=== PATIENT | female | born 1970 | race African-American/Black ===

== ENCOUNTER 2016-06-06 11:00 | Emergency (ER) | payer MEDICAID, OTHER ==
[~2016-06-06] VITALS: Ht 175.3 cm; Wt 95.0 kg
[~2016-06-06 11:00] MED LIST: ATRITAB PO; DILA100C PO; ISENTRESS; LEVE500 PO; LEXA10TA PO; PERC7.5T13 PO
[2016-06-06 11:09] VITALS: BP 115/60; PULSE 71; RESP 18; TEMP 98.2; O2SAT 99
[2016-06-06] MEDS ORDERED: LEVE500T8 PO (11:19)
[2016-06-06] MEDS ORDERED: TOPI1TAB97 PO (11:19)
[2016-06-06] MEDS ORDERED: ATRITAB PO (11:19)
[2016-06-06] MEDS ORDERED: RALT400 PO (11:19)
[2016-06-06] MEDS ORDERED: ESCI10TA PO (11:19)
[2016-06-06] MEDS ORDERED: ZOVI400T PO (11:19)
[2016-06-06] MEDS ORDERED: ADVA250A INH (11:19)
[2016-06-06] MEDS ORDERED: DIVA250T PO (11:19)
[2016-06-06] MEDS ORDERED: BARA1TAB PO (11:19)
--- NOTE | 2016-06-06 11:40 | PD ---
HPI Chief Complaint: Seizure Time Seen by Provider: 11:40 Travel History International Travel<30 days: No Contact w/Intl Traveler<30days: No Traveled to known affect area: No History of Present Illness HPI 45-year-old female with a history of seizure disorder presents to the emergency department by EMS for evaluation of seizure activity. Per EMS report the patient was at a where she had 2 seizures. The patient's is present and provides much of the history as the patient is reporting that she does not remember what happened. Patient's states that they went to her sister's today and after viewing the body they were walking away back to their vehicle when the patient had a seizure falling back and hitting her head on the ground. States that the seizure lasted for a few seconds and then stopped. States that she then had another seizure a few minutes later lasting for only a few seconds. States that she has been taking her seizure medication as prescribed. States that he was concerned that today would be very stressful for her and would aggravate her seizure disorder. States she has not had a seizure in 8 months. The patient is currently having some difficulty speaking, is stammering and is a little confused. The patient's states that this has happened to her once in the past after a seizure as well and resolved on its own. The patient is currently complaining of headache and neck pain. Denies chest pain, shortness of breath, dizziness, nausea, vomiting, abdominal pain, numbness or tingling, focal weakness. She is complaining of global weakness. Denies any anticoagulation. No other complaints. PFSH Past Medical History Anemia: Yes (neutropenia) Arthritis: No Asthma: Yes Autoimmune Disease: Yes (HIV-positive) Blood Disorders: Yes (HIV) Anxiety: No Depression: Yes Heart Rhythm Problems: No Cancer: No Cardiovascular Problems: No High Cholesterol: No Chemotherapy: No Chest Pain: No Congestive Heart Failure: No COPD: No Cerebrovascular Accident: No Diabetes: No Diminished Hearing: No Endocrine: No Gastrointestinal Disorders: Yes (HEMMORHOIDS) GERD: No Glaucoma: No Genitourinary: No Headaches: Yes Hepatitis: No Hiatal Hernia: No Heparin Induced Thrombocytopen: No Hypertension: No Immune Disorder: Yes (HIV +) Implanted Vascular Access Dvce: No Kidney Stones: No Musculoskeletal: Yes Neurologic: Yes Psychiatric: Yes Reproductive: No Respiratory: Yes (hx of PNEUMONIA/asthma) Immunizations Current: No Migraines: No Myocardial Infarction: No Radiation Therapy: No Renal Failure: No Seizures: Yes (takes dilantin) Sickle Cell Disease: No Sleep Apnea: No Thyroid Disease: No Ulcer: No ?: Not Menopausal: Yes : 3 Para: 1 Miscarriage: 2 Past Surgical History Abdominal Surgery: Yes (GALLBLADDER IN 2006) AICD: No Appendectomy: No Arteriovenous Shunt: No Cardiac Surgery: No Cholecystectomy: Yes (2006) Ear Surgery: No Endocrine Surgery: No Eye Surgery: No Genitourinary Surgery: No Gynecologic Surgery: No Hysterectomy: Yes Insulin Pump: No Joint Replacement: No Neurologic Surgery: No Oral Surgery: No Pacemaker: No Thoracic Surgery: No Other Surgery: Yes (cyst removed from right arm) Social History Alcohol Use: No Tobacco Use: No Substance Use: Yes (CRACK MONTHLY) Allergies-Medications (Allergen,Severity, Reaction): Coded Allergies: Amoxicillin (Verified Allergy, Severe, hives, 04/02/10) Penicillin (Verified Allergy, Severe, Hives, 04/02/10) Procaine (Verified Allergy, Severe, HIVES, 04/02/10) Reported Meds & Prescriptions Reported Meds & Active Scripts Active Reported Advair Diskus Inh (Fluticasone-Salmeterol Inh) 250-50 Mcg/Blist Aer 1 Puff INH BID Rinse mouth after use. Escitalopram (Escitalopram Oxalate) 10 Mg Tab 10 Mg PO DAILY Zovirax (Acyclovir) 400 Mg Tab 400 Mg PO BID Topiramate 25 Mg Tab 25 Mg PO BID Baraclude (Entecavir) 1 Mg Tab 1 Mg PO DAILY Take on an empty stomach. Atripla (Hcjlmvjav-Tmhdvxdomibbp-Jvfafptqy) 600-200-300 Mg Tab 1 Tab PO HS Take on an empty stomach. Isentress (Raltegravir) 400 Mg Tab 400 Mg PO BID Divalproex DR (Divalproex Sodium) 250 Mg Tabdr 250 Mg PO TID Levetiracetam 500 Mg Tab 500 Mg PO TID Review of Systems Except as stated in HPI: all other systems reviewed are Neg Physical Exam Narrative GENERAL: Well-nourished and well-developed pleasant female patient in no acute distress. SKIN: Warm and dry. HEAD: Normocephalic and atraumatic. EYES: No injection, drainage, or hyphema noted. PERRLA. EOMI. ENT: No nasal drainage noted. Oropharynx is clear. NECK: Supple and the trachea is midline. CARDIOVASCULAR: Regular rate and rhythm. RESPIRATORY: Breath sounds are equal bilaterally with no accessory muscle use, wheezing, rhonchi, or crackles. GASTROINTESTINAL: Abdomen is soft, non-tender, and nondistended. MUSCULOSKELETAL: No obvious deformities, swelling, cyanosis, or ecchymosis is present throughout the upper and lower extremities. Patient has full range of motion without any signs of neurovascular compromise. Strength 5/5 upper extremities and 4/5 lower extremities, equal bilaterally. NEUROLOGICAL: Awake, alert, and oriented. Stammering but not slurred. No facial droop. Cranial nerves are grossly intact. Data Data Last Documented VS Vital Signs Date Time Temp Pulse Resp B/P Pulse Ox O2 Delivery O2 Flow Rate FiO2 06/06/16 11:43 97 Nasal Cannula 2 06/06/16 11:27 18 06/06/16 11:09 98.2 71 115/60 Orders Electrocardiogram (06/06/16 ) Ct Brain W/O Iv Contrast(Rout) (06/06/16 11:35) Ct Cerv Spine W/O Contrast (06/06/16 11:35) Complete Blood Count With Diff (06/06/16 11:35) Phenytoin (Dilantin) (06/06/16 11:35) Ecg Monitoring (06/06/16 11:35) Iv Access Insert/Monitor (06/06/16 11:35) Oximetry (06/06/16 11:35) Comprehensive Metabolic Panel (06/06/16 11:35) Sodium Chloride 0.9% Flush (Ns Flush) (06/06/16 11:45) Urinalysis - C+S If Indicated (06/06/16 11:35) Magnesium (Mg) (06/06/16 11:35) Apply Cervical Collar (06/06/16 11:35) Alcohol (Ethanol) (06/06/16 11:39) Valproic Acid (Depakene) (06/06/16 11:42) Remove Cervical Collar (06/06/16 12:53) Divalproex Dr (Depakote Dr) (06/06/16 13:30) Labs Laboratory Tests Test 06/06/16 06/06/16 11:45 13:05 White Blood Count 9.3 TH/MM3 Red Blood Count 3.94 MIL/MM3 Hemoglobin 12.8 GM/DL Hematocrit 37.6 % Mean Corpuscular Volume 95.4 FL Mean Corpuscular Hemoglobin 32.5 PG Mean Corpuscular Hemoglobin 34.1 % Concent Red Cell Distribution Width 14.6 % Platelet Count 128 TH/MM3 Mean Platelet Volume 12.5 FL Neutrophils (%) (Auto) 56.4 % Lymphocytes (%) (Auto) 34.5 % Monocytes (%) (Auto) 7.1 % Eosinophils (%) (Auto) 0.7 % Basophils (%) (Auto) 1.3 % Neutrophils # (Auto) 5.2 TH/MM3 Lymphocytes # (Auto) 3.2 TH/MM3 Monocytes # (Auto) 0.7 TH/MM3 Eosinophils # (Auto) 0.1 TH/MM3 Basophils # (Auto) 0.1 TH/MM3 CBC Comment AUTO DIFF Differential Comment AUTO DIFF CONFIRMED Sodium Level 141 MEQ/L Potassium Level 4.4 MEQ/L Chloride Level 114 MEQ/L Carbon Dioxide Level 19.5 MEQ/L Anion Gap 8 MEQ/L Blood Urea Nitrogen 8 MG/DL Creatinine 0.76 MG/DL Estimat Glomerular Filtration 99 ML/MIN Rate Random Glucose 87 MG/DL Calcium Level 8.0 MG/DL Magnesium Level 1.7 MG/DL Total Bilirubin 0.2 MG/DL Aspartate Amino Transf 34 U/L (AST/SGOT) Alanine Aminotransferase 15 U/L (ALT/SGPT) Alkaline Phosphatase 117 U/L Total Protein 6.6 GM/DL Albumin 3.0 GM/DL Phenytoin (Dilantin) Level LESS THAN 0.4 MCG/ML Valproic Acid (Depakene) Level 46 MCG/ML Ethyl Alcohol Level LESS THAN 3 MG/DL Urine Color YELLOW Urine Turbidity HAZY Urine pH 7.0 Urine Specific [place] 1.013 Urine Protein NEG mg/dL Urine Glucose (UA) NEG mg/dL Urine Ketones NEG mg/dL Urine Occult Blood NEG Urine Nitrite NEG Urine Bilirubin NEG Urine Urobilinogen LESS THAN 2.0 MG/DL Urine Leukocyte Esterase MOD Urine RBC 2 /hpf Urine WBC 5 /hpf Urine Squamous Epithelial 3 /hpf Cells Urine Transitional Epithelial <1 /hpf Cells Urine Bacteria RARE /hpf Urine Mucus FEW /lpf Microscopic Urinalysis Comment CULT NOT INDICATED MDM Medical Decision Making Medical Screen Exam Complete: Yes Emergency Medical Condition: Yes Differential Diagnosis Seizure versus subtherapeutic medication versus noncompliance versus pseudoseizure versus electrolyte imbalance Narrative Course 45-year-old female with history of seizure disorder presents to the emergency department for evaluation of seizure. Patient is afebrile, vital signs are stable. The patient appears postictal. No focal neurologic deficits. She does have a headache and neck pain. She displays in a cervical collar. Stat head CT and cervical spine CT imaging has been ordered and is pending. IV access was obtained, labs were drawn and sent. My attending physician Dr. Charlton also evaluated the patient and agrees with postictal state and current workup. Head CT is negative for any acute abnormalities. CT of the cervical spine shows single focal area of cortical discontinued involving the anterior inferior endplate of the C5 vertebral body. The adjacent fat planes are preserved. I reviewed this image with my attending physician Dr. Charlton and his read is this is an old fracture, patient's cervical collar is removed. CBC is unremarkable. CMP is unremarkable. Dilantin level is less than 0.4. Valproic acid is subtherapeutic at 46. EtOH is less than 3. Urinalysis shows moderate leukocyte esterase, rare bacteria and few mucus. Patient reassessed and reports feeling much better, speech and behavior is back to normal. I discussed this with my attending physician who recommends administering the patient 500 mg of Divalproex now and increasing her nighttime dose to 500 mg QHS until she can follow-up with her PCP. I discussed with the patient and family verbalized understanding and agreement with treatment plan. The patient is stable for discharge. I discussed the case with my attending physician Dr. Charlton who is aware of the patients history, physical examination findings, and treatment plan. Diagnosis Primary Impression: Seizure Referrals: Primary Care Physician Patient Instructions: General Instructions, Recurrent Seizures in Adults (ED) Additional Instructions: Increase your Divalproex dose: Take 250 mg once in the morning, 250 mg once in the afternoon and 500 mg before bedtime. Follow-up with your Primary Care Physician within the next 3-4 days. Return to the ED for any acute worsening of symptoms. Med/Other Pt SpecificInfo: No Change to Meds Disposition: 01 DISCHARGE HOME Condition: Stable Arlin Santillan Jun 06, 2016 11:40
[2016-06-06 11:43] VITALS: O2SAT 97
[2016-06-06] MEDS ORDERED: SODIUM CHLORIDE 0.9% FLUSH 10 ML FLUSH IVF PRN (11:45)
[2016-06-06 11:59] LABS: AUTOMATED NEUTROPHIL # 5.2 TH/MM3 (1.8-7.7); BASOPHIL # 0.1 TH/MM3 (0-0.2); BASOPHIL % 1.3 % (0.0-2.0); EOSINOPHIL # 0.1 TH/MM3 (0-0.4); EOSINOPHIL % 0.7 % (0.0-4.0); HEMATOCRIT 37.6 % (35.0-46.0); LYMPH % 34.5 % (9.0-44.0); LYMPHOCYTE # 3.2 TH/MM3 (1.0-4.8); MEAN CELL VOLUME 95.4 FL (80.0-100.0); MEAN CORPUSCULAR HEMOGLOBIN 32.5 PG (27.0-34.0); MEAN CORPUSCULAR HGB CONC 34.1 % (32.0-36.0); MONO % 7.1 % (0.0-8.0); NEUT % 56.4 % (16.0-70.0); PLATELET COUNT 128 TH/MM3 (150-450); RED BLOOD COUNT 3.94 MIL/MM3 (4.00-5.30); RED CELL DISTRIBUTION WIDTH 14.6 % (11.6-17.2); WHITE BLOOD COUNT 9.3 TH/MM3 (4.0-11.0)
[2016-06-06 12:02] LABS: HEMO FLAGS AUTO DIFF
[2016-06-06 12:17] LABS: ALKALINE PHOSPHATASE 117 U/L (45-117); ALT (GPT) 15 U/L (10-53); ANION GAP 8 MEQ/L (5-15); AST (GOT) 34 U/L (15-37); BICARBONATE 19.5 MEQ/L (21.0-32.0); BLOOD UREA NITROGEN 8 MG/DL (7-18); CHLORIDE 114 MEQ/L (98-107); GLOMERULAR FILTRATION RATE 99 ML/MIN (>89); MAGNESIUM 1.7 MG/DL (1.5-2.5); POTASSIUM 4.4 MEQ/L (3.5-5.1); SODIUM (NA) 141 MEQ/L (136-145); TOTAL BILIRUBIN ADULT 0.2 MG/DL (0.2-1.0)
--- NOTE | 2016-06-06 12:25 | RADRPT ---
EXAM DATE/TIME: 06/06/2016 12:10 [facility] COMPARISON: CT BRAIN W/O CONTRAST, April 02, 2010, 16:19. INDICATIONS : Seizure. RADIATION DOSE: 56.35 CTDIvol (mGy) MEDICAL HISTORY : Seizures. HIV. SURGICAL HISTORY : Hysterectomy. ENCOUNTER: Initial ACUITY: 1 day PAIN SCALE: 0/10 LOCATION: cranial TECHNIQUE: Multiple contiguous axial images were obtained of the head. Using automated exposure control and adj ustment of the mA and/or kV according to patient size, radiation dose was kept as low as reasonably a chievable to obtain optimal diagnostic quality images. FINDINGS: CEREBRUM: The ventricles are normal for age. No evidence of midline shift, mass lesion, hemorrhage or acute in farction. No extra-axial fluid collections are seen. Senescent calcifications are identified within the basal ganglia, stable. POSTERIOR FOSSA: The cerebellum and brainstem are intact. The 4th ventricle is midline. The cerebellopontine angle i s unremarkable. EXTRACRANIAL: The visualized portion of the orbits is intact. It is retention cysts identified within the sphenoid sinus and left maxillary sinus. SKULL: The calvaria is intact. No evidence of skull fracture. CONCLUSION: No acute disease. Breana Byrne MD on June 06, 2016 at 12:22 Board Certified Radiologist. This report was verified electronically.
[2016-06-06 12:34] LABS: SCAN/DIFF AUTO DIFF CONFIRMED
--- NOTE | 2016-06-06 12:36 | RADRPT ---
EXAM DATE/TIME: 06/06/2016 12:10 [facility] COMPARISON: No previous studies available for comparison. INDICATIONS : Trauma; fall; seizure. RADIATION DOSE: 32.44 CTDIvol (mGy) MEDICAL HISTORY : HIV. Seizures. SURGICAL HISTORY : Hysterectomy. ENCOUNTER: Initial ACUITY: 1 day PAIN SCALE: 0/10 LOCATION: Bilateral neck TECHNIQUE: Volumetric scanning of the cervical spine was performed. Multiplanar reconstructions in the sagittal, coronal and oblique axial planes were performed. Using automated exposure control and adjustment o f the mA and/or kV according to patient size, radiation dose was kept as low as reasonably achievable to obtain optimal diagnostic quality images. FINDINGS: VERTEBRAE: Normal vertebral body height. There is a single focal area of cortical discontinuity involving the an terior inferior endplate of the C5 vertebral body. Anteriorly the fat planes appear preserved. ALIGNMENT: No evidence of subluxation. C2-C3: The bony spinal canal is normal in size. No evidence of disc bulge or herniation. The neural forami na are bilaterally patent. C3-C4: The bony spinal canal is normal in size. No evidence of disc bulge or herniation. The neural forami na are bilaterally patent. C4-C5: The bony spinal canal is normal in size. No evidence of disc bulge or herniation. The neural forami na are bilaterally patent. C5-C6: The bony spinal canal is normal in size. No evidence of disc bulge or herniation. The neural forami na are bilaterally patent. C6-C7: The bony spinal canal is normal in size. No evidence of disc bulge or herniation. The neural forami na are bilaterally patent. C7-T1: The bony spinal canal is normal in size. No evidence of disc bulge or herniation. The neural forami na are bilaterally patent. CONCLUSION: Single focal area of cortical discontinuity involving the anterior anterior endplate of the C5 verteb ral body. The adjacent fat planes appear preserved. Correlate with pain in the site. If there is conc perri for possible avulsion fracture consider further evaluation with MRI.. Breana Byrne MD on June 06, 2016 at 12:27 Board Certified Radiologist. This report was verified electronically.
[2016-06-06 13:21] LABS: BACTERIA, URINE RARE /hpf; BLOOD, URINE NEG (NEG); COMMENT (UR) CULT NOT INDICATED; CULTURE IF INDICATED CULT NOT INDICATED; GLUCOSE,URINE NEG (NEG); KETONE, URINE NEG (NEG); MUCUS URINE FEW /lpf (OCC); NITRITE,URINE NEG (NEG); SQUAMOUS EPITHELIAL CELL URINE 3 /hpf (0-5); TRANSITIONAL EPI CELLS, URINE <1 /hpf; URINE COLOR YELLOW (YELLW/STRAW)
[2016-06-06] MEDS ORDERED: DIVALPROEX DR 500 MG TABEC PO ONE (13:30)
--- NOTE | 2016-06-07 10:24 | EKG ---
Date Performed: 06/06/2016 Time Performed: 11:12:08 PTAGE: 45 years EKG: Sinus rhythm NORMAL ECG INTERPRETATION BASED ON A DEFAULT AGE OF 40 YEARS Compared to prior tracing no significan t change PREVIOUS TRACING 09/24/2009 14.55.50 DOCTOR: Diego Chiu Interpretating Date/Time 06/07/2016 10:23:33
== END 2016-06-06 14:16 | disposition home or self-care (01) ==
LOC: NEPC 11:00
DX: R56.9 Unspecified convulsions (principal); B20 Human immunodeficiency virus [HIV] disease; F14.10 Cocaine abuse, uncomplicated
CPT/HCPCS: 70450; 72125; 80053; 80164; 80185; 80307; 81001; 83735; 85025; 93005